=== PATIENT | male | born 1985 | race Two or more races ===

== ENCOUNTER 2016-11-14 22:36 | Emergency (ER) | payer OTHER ==
[2016-11-14] MEDS ORDERED: ACETAMINOPHEN 325 MG TABLET ONE (23:50)
[2016-11-15 01:17] LABS: ABSOLUTE NEUTROPHIL COUNT 9.5 K/mm3 (1.8-7.7); BASO % 0.1 % (0.2-1.0); EOS % 0.3 % (0.9-2.9); HEMATOCRIT 45.6 % (32.0-52.0); HEMOGLOBIN 15.3 gm/l (14.0-18.0); IMM NEUT # 0.1 K/mm3 (0-0.2); IMM NEUT% 0.5 % (0-1); LYMPH # 0.5 (1.0-4.8); LYMPH % 4.3 % (15-45); MEAN CELL VOLUME 90.1 fl (80.0-94.0); MEAN CORPUSCULAR HEMOGLOBIN 30.2 pg (27.0-31.0); MEAN CORPUSCULAR HGB CONC 33.6 g/dl (33.0-37.0); MEAN PLATELET VOLUME 10.3 fl (7.4-10.4); MONO # 0.6 (0.0-0.8); MONO % 5.5 % (4-12); NEUT % 89.3 % (43-75); PLATELET COUNT 197 K/mm3 (130-400); RED CELL DISTRIBUTION WIDTH 12.9 % (11.5-14.5)
[2016-11-15 01:38] LABS: ALB/GLOB RATIO 1.2 (>1.0); ALBUMIN 4.1 gm/dL (3.5-5.7); CALCIUM 8.6 mg/dL (8.6-10.3)
--- NOTE | 2016-11-15 06:58 | RAD ---
EXAMINATION:CHEST - 2 VIEWS CLINICAL INDICATION: Vomiting. Possible aspiration. Recent fever. COMPARISON: Prior exam dated 02/26/2016. FINDINGS: Considerable scoliosis is noted. Elevation left hemidiaphragm is evident and similar to the prior exam. There is bibasilar atelectasis left greater than right also similar to the prior study. There is no pleural effusion. There is no discernible pneumothorax. Osseous structures appear stable. IMPRESSION: Stable findings compared to the prior study. There is elevation of the left hemidiaphragm bibasilar atelectasis and positional alterations as described. No superimposed acute process is currently identified.
== END 2016-11-15 04:27 | disposition home or self-care (01) ==
LOC: ED 22:36
DX: R11.10 Vomiting, unspecified (principal); R50.9 Fever, unspecified; J45.909 Unspecified asthma, uncomplicated; R56.1 Post traumatic seizures; Z93.1 Gastrostomy status
CPT/HCPCS: 83605; 85025; 87040; 80053; 36415 ×2; 71020; 99283 ×2; A9270